=== PATIENT | female | born 1965 | race Two or more races ===

== ENCOUNTER 2019-01-08 13:34 | Emergency (ER) | payer BC ==
[2019-01-08 13:39] VITALS: PULSE 105; TEMP 97.9; BMI 23.3
[2019-01-08 13:41] VITALS: BP 143/66
[2019-01-08] MEDS ORDERED: SODIUM CHLORIDE 1,000 ML IV STA (13:43)
--- NOTE | 2019-01-08 13:43 | PDOC ---
Rapid Medical Evaluation Chief Complaint: Pain, Acute Time Seen by Provider: 01/08/19 13:38 Medical Evaluation: Allergies Allergy/AdvReac Type Severity Reaction Status Date / Time No Known Drug Allergies Allergy Verified 07/24/15 08:25 01/08/19 13:39 CC: right sided pelvic pain. No vaginal bleeding, diarrhea, dusuria or hematuria PE: right pelvic tenderness Orders: labs, TVUS Patient will proceed to ED for continued evaluation. Discharge Disposition - Diagnosis Abdominal pain - Discharge Dispostion Condition at time of disposition: Stable - Referrals - Patient Instructions - Post Discharge Activity
--- NOTE | 2019-01-08 13:55 | PDOC ---
History of Present Illness - General History Source: Patient - History of Present Illness Timing/Duration: reports: other Abdominal Pain Onset Location: reports: RLQ <Delfina Bey - Last Filed: 01/08/19 17:51> <Kehinde Vargas - Last Filed: 01/11/19 13:15> - General Chief Complaint: Pain, Acute Stated Complaint: ABD PAIN/SENT BY PCP Time Seen by Provider: 01/08/19 13:38 Past History - Past Medical History Anemia: No Asthma: No Cancer: No Cardiac Disorders: No CVA: No COPD: No CHF: No Dementia: No Diabetes: No GI Disorders: Yes (dysphagia) Disorders: No HTN: No Hypercholesterolemia: No Liver Disease: No Seizures: No Thyroid Disease: No - Immunization History Immunization Up to Date: No - Psycho Social/Smoking Cessation Hx Smoking History: Never smoked Have you smoked in the past 12 months: No Information on smoking cessation initiated: No Hx Alcohol Use: No Drug/Substance Use Hx: No Substance Use Type: None <Delfina Bey - Last Filed: 01/08/19 17:51> <Kehinde Vargas - Last Filed: 01/11/19 13:15> - Past Medical History Allergies/Adverse Reactions: Allergies Allergy/AdvReac Type Severity Reaction Status Date / Time No Known Drug Allergies Allergy Verified 07/24/15 08:25 Home Medications: Ambulatory Orders Multivitamins [Tab-A-Vit -] 1 tab PO DAILY 07/23/15 Acetaminophen W/ Codeine #3 [Tylenol # 3 -] 1 tab PO Q4H PRN #30 tablet MDD 6 Review of Systems - Review of Systems Constitutional: No: Chills, Fever ABD/GI: No: Blood Streaked Bowels, Constipated, Diarrhea, Nausea, Rectal Bleeding, Vomiting : No: Burning, Dysuria, Discharge, Frequency, Flank Pain, Hematuria <Delfina Bey - Last Filed: 01/08/19 17:51> *Physical Exam - Vital Signs Last Vital Signs Temp Pulse Resp BP Pulse Ox 97.9 F 105 H 18 143/66 100 01/08/19 13:37 01/08/19 13:37 01/08/19 13:37 01/08/19 13:37 01/08/19 13:37 - Physical Exam General Appearance: Yes: Appropriately Dressed. No: Apparent Distress HEENT: positive: Normal Voice Neck: positive: Supple Respiratory/Chest: negative: Respiratory Distress Gastrointestinal/Abdominal: positive: Normal Bowel Sounds, Tender (minimal ttp to deep palpation to RLQ), Soft. negative: Pulsatile Mass, Distended, Guarding , Rebound Musculoskeletal: negative: CVA Tenderness Integumentary: positive: Dry, Warm Neurologic: positive: Fully Oriented, Alert, Normal Mood/Affect <Delfina Bey - Last Filed: 01/08/19 17:51> - Vital Signs Last Vital Signs Temp Pulse Resp BP Pulse Ox 97.9 F 105 H 18 143/66 100 01/08/19 13:37 01/08/19 13:37 01/08/19 13:37 01/08/19 13:37 01/08/19 13:37 <Kehinde Vargas - Last Filed: 01/11/19 13:15> ED Treatment Course - LABORATORY CBC & Chemistry Diagram: 01/08/19 14:00 01/08/19 14:00 <Delfina Bey - Last Filed: 01/08/19 17:51> - LABORATORY CBC & Chemistry Diagram: 01/08/19 14:00 01/08/19 14:00 - ADDITIONAL ORDERS Additional order review: 01/08/19 16:26 Urine Culture - Final Urine - Urine Clean Catch NO GROWTH OBTAINED 01/08/19 14:00 RBC 4.26 MCV 82.8 MCHC 32.6 RDW 13.5 MPV 9.1 Neutrophils % 57.3 Lymphocytes % 34.2 D Monocytes % 6.7 Eosinophils % 1.5 D Basophils % 0.3 - Medications Given in the ED: ED Medications Discontinued Medications Generic Name Dose Route Start Last Admin Trade Name Freq PRN Reason Stop Dose Admin Sodium Chloride 1,000 mls @ 1,000 mls/hr 01/08/19 13:43 01/08/19 13:50 Normal Saline - IV 01/08/19 14:42 1,000 mls/hr ASDIR STA Administration <Kehinde Vargas - Last Filed: 01/11/19 13:15> Medical Decision Making - Medical Decision Making 01/08/19 13:50 53 yo F, s/p remote surgery for ovarian cyst, here with RLQ x3 days, constant and hurts more with deep palpation per patient. Denies any nausea, vomiting, change in bowel movements, dysuria, fever or chills. States pain does not feel similar to her pain with her ovarian cysts. No h/o torsion see exam R/o appy though unlikely vs recurrent ovarian cyst vs less likely torsion, renal colic or UTI -decline pain meds -labs -CT -?US 01/08/19 18:01 CT negative for acute pathology and does document no obvious pelvic soft tissue abnormality and that ~4 cm R ovarian cyst seen on study in 11/2016 is no longer present. Labs and UA unremarkable. Patient reports no pain currently and abdominal abdomen non-tender on reassessment. Will dc to follow-up with PMD and [facility]. <Delfina Bey - Last Filed: 01/08/19 17:51> - Medical Decision Making 01/11/19 13:15 I reviewed the case of the mid-level practitioner and was available for consultation while in the emergency department p <Kehinde Vargas - Last Filed: 01/11/19 13:15> Discharge - Discharge Information Problems reviewed: Yes <Delfina Bey - Last Filed: 01/08/19 17:51> <Kehinde Vargas - Last Filed: 01/11/19 13:15> - Discharge Information Clinical Impression/Diagnosis: Abdominal pain Qualifiers: Abdominal location: right lower quadrant Qualified Code(s): R10.31 - Right lower quadrant pain Condition: Improved Disposition: HOME - Patient Discharge Instructions Patient Printed Discharge Instructions: DI for Abdominal Pain-Adult Additional Instructions: The cause of your abdominal pain is unclear as your labs and CT did not show an obvious source If pain persists, please follow-up with your PMD and [employer] Take Tylenol or Motrin for pain as needed
[2019-01-08 14:31] LABS: BASO % 0.3 % (0-2.0); EOS % 1.5 % (0-4.5); HEMATOCRIT 35.2 % (32.4-45.2); HEMOGLOBIN 11.5 GM/dL (10.7-15.3); LYMPH % 34.2 % (8-40); MCHC 32.6 g/dl (32.0-36.0); MEAN CELL VOLUME 82.8 fl (80-96); MEAN PLT VOLUME 9.1 fl (7.5-11.1); MONO % 6.7 % (3.8-10.2); NEUT % 57.3 % (42.8-82.8); PLATELET COUNT 281 K/MM3 (134-434); RBC 4.26 M/mm3 (3.60-5.2); RDW 13.5 % (11.6-15.6)
[2019-01-08 14:54] LABS: ALBUMIN 3.6 g/dl (3.4-5.0); BILIRUBIN,TOTAL 0.2 mg/dL (0.2-1); BLOOD UREA NITROGEN 22.2 mg/dL (7-18); CALCIUM 9.3 mg/dL (8.5-10.1); TOT PROT 7.6 g/dl (6.4-8.2)
[2019-01-08 17:24] LABS: URINE APPEARANCE CLEAR; URINE BILIRUBIN NEGATIVE (NEGATIVE); URINE COLOR YELLOW; URINE GLUCOSE (UA) NEGATIVE (NEGATIVE); URINE KETONE NEGATIVE (NEGATIVE)
[2019-01-08 17:25] LABS: EPI CELLS 1 /HPF (0-5/HPF); HYALINE CASTS 4 /lpf (0-8); PH,URINE 5.5 (5.0-8.0); URINE LEUK ESTERASE N (NEGATIVE); URINE NITRITE NEGATIVE (NEGATIVE); URINE PROTEIN NEGATIVE (NEGATIVE); URINE RBC 6 /hpf (0-4); URINE UROBILINOGEN 0.2 mg/dL (0.2-1.0); URINE WBC 3 /hpf (0-5)
[2019-01-08 17:26] LABS: URINE BACTERIA 12 /hpf (NEGATIVE)
== END 2019-01-08 17:35 | disposition home or self-care (01) ==
LOC: JER 13:34
DX: R10.31 Right lower quadrant pain (principal)
CPT/HCPCS: 36415; 74177-TC; 80053; 81003; 84703; 85025; 87086; 99282-25; J7030

== ENCOUNTER 2021-01-04 12:50 | Emergency (ER) | payer BC ==
[2021-01-04 13:17] VITALS: BP 132/72; PULSE 66; TEMP 98.8; BMI 24.1
[2021-01-04] MEDS ORDERED: IBUPROFEN 600 MG TABLET (FP) PO ONE ×2 (13:28→13:29)
== END 2021-01-04 14:43 | disposition home or self-care (01) ==
LOC: FER 12:50
DX: S83.92XA Sprain of unspecified site of left knee, initial encounter (principal); X50.0XXA Overexertion from strenuous movement or load, initial encounter
CPT/HCPCS: 73562-TC-LT-FY; 99283-25